=== PATIENT | male | born 1980 | race Caucasian/White ===

== ENCOUNTER → 2016-11-30 | Outpatient (REF) | LOC: WSOH 14:50 | DX: Z02.4 Encounter for examination for driving license (principal) ==

== ENCOUNTER 2019-08-05 10:37 | Emergency (ER) | payer BC ==
[~2019-08-05] VITALS: Ht 185.4 cm; Wt 84.1 kg
[2019-08-05 11:23] VITALS: TEMP 97
[2019-08-05] MEDS ORDERED: MEDROL 4MG DOSPA4 MG PO (12:29)
[2019-08-05] MEDS ORDERED: LIDODERM 5% PATC1 EA TP (12:29)
[2019-08-05] MEDS ORDERED: NORCO 325 MG-7.1 TAB PO (12:29)
[2019-08-05] MEDS ORDERED: FLEXERIL 1010 MG/TAB PO (12:29)
[2019-08-05] MEDS ORDERED: ZOFRAN ODT4 MG PO (12:33)
[2019-08-05 13:31] VITALS: BP 120/81; PULSE 72
== END 2019-08-05 13:32 | disposition home or self-care (01) ==
LOC: COL.ER 10:37
DX: M54.41 Lumbago with sciatica, right side (principal)
CPT/HCPCS: J1170; J1885; J2405

== ENCOUNTER → 2019-08-21 | Outpatient (CLI) | payer BC ==
[~2019-08-21] VITALS: Ht 185.4 cm; Wt 83.4 kg
[~2019-08-21] MED LIST: ADVIL200 MG PO; FLEXERIL 1010 MG/TAB PO; LIDODERM 5% PATC1 EA TP; MEDROL 4MG DOSPA4 MG PO; NORCO 325 MG-7.1 TAB PO; ZOFRAN ODT4 MG PO
[2019-08-21 13:35] VITALS: BP 154/102; PULSE 85
[2019-08-21 14:10] VITALS: BP 157/104; PULSE 73
== END ==
LOC: COL.RAD 13:00
DX: M48.061 Spinal stenosis, lumbar region without neurogenic claudication (principal); M54.41 Lumbago with sciatica, right side
CPT/HCPCS: J3301

== ENCOUNTER → 2019-09-04 | Outpatient (CLI) | payer BC ==
[~2019-09-04] VITALS: Ht 185.4 cm; Wt 84.5 kg
[2019-09-04 10:02] VITALS: BP 174/99; PULSE 20
[2019-09-04 10:50] VITALS: BP 158/101; PULSE 77
== END ==
LOC: COL.RAD 09:18
DX: M54.41 Lumbago with sciatica, right side (principal); M48.061 Spinal stenosis, lumbar region without neurogenic claudication
CPT/HCPCS: J3301